=== PATIENT | female | born 1965 | race Caucasian/White ===

== ENCOUNTER 2025-02-26 15:59 | Emergency (ER) | payer OTHER, SELFPAY ==
[2025-02-26 16:16] VITALS: BP 141/84
[2025-02-26 16:37] LABS: % Basophils 0.3 % (0-2); % Eosinophils 1.1 % (0-6); % Immature Granulocytes 0.3 % (0-0.5); % Lymphocytes 49.9 % (20.5-51.1); % Monocytes 5.5 % (1.7-9.3); % Neutrophils 42.9 % (42.2-75.2); Absolute Eosinophils 0.1 10^3/uL (0-0.7); Absolute Lymphocytes 3.6 10^3/uL (1.2-3.4); Absolute Monocytes 0.4 10^3/uL (0.1-0.6); Absolute Neutrophils 3.1 10^3/uL (1.4-6.5); Hematocrit 39.8 % (37.0-47.0); Hemoglobin 14.2 g/dL (12.0-16.0); Mean Corp Hgb Conc. 35.7 g/dL (33.0-37.0); Mean Corpuscular Hgb 30.9 pg (27.0-31.0); Mean Corpuscular Volume 86.5 fL (81.0-99.0); Mean Platelet Volume 8.5 fL (7.4-10.4); Nucleated Red Blood Cells % 0 %; Platelet Count 341 10^3/uL (130-400); Red Cell Dist. Width 11.6 % (11.5-14.5); White Blood Cell Count 7.1 10^3/uL (4.8-10.8)
[2025-02-26 18:23] LABS: ALT (SGPT) 28 U/L (0-35); AST (SGOT) 24 U/L (14-36); Albumin 4.5 g/dl (3.5-5.0); Alkaline Phosphatase 95 U/L (38-126); Blood Urea Nitrogen 19 mg/dl (7-17); Calcium 9.7 mg/dl (8.4-10.2); Carbon Dioxide 29 mmol/L (22-30); Chloride 103 mmol/L (98-107); Glucose 102 mg/dl (70-99); Potassium 4.6 mmol/L (3.5-5.1); Sodium 143 mmol/L (135-145); Total Bilirubin 0.7 mg/dl (0.2-1.3); Total Protein 7.4 g/dl (6.3-8.2); eGFR > 60.00
[2025-02-26 18:53] VITALS: BP 113/80
[2025-02-26 19:00] VITALS: BP 107/77
[2025-02-26] MEDS: NSS 1000 IV (19:31)
[2025-02-26] MEDS: BENADRYL 25 MG IV (19:32)
[2025-02-26] MEDS: TORADOL 15 MG IV (19:33)
[2025-02-26] MEDS: REGLAN 10 MG IV (19:34)
--- NOTE | 2025-02-26 20:31 | ED.GENMED ---
History of Present Illness
<Micheline Dangelo PA-C - Last Filed: 02/26/25 22:45>
General
Chief Complaint: Headache
Source: patient
Exam Limitations: none
Time Seen by Provider: 02/26/25 19:14
Nursing documentation reviewed up to this point in time: agreed with
History of Present Illness
History of Present Illness:
Patient is a 59-year-old female presenting to the emergency department for evaluation of headache. Patient states she woke up yesterday morning with a severe headache on the entire right side of her head starting from behind her right eye. She
describes it as a constant throbbing with occasional sharp pain behind her eye. She has had mild nausea although no vomiting. She does report sensitivity to light and has been unable to look at her phone without exacerbating symptoms. Patient
denies any neck pain, lightheadedness/dizziness. She denies any numbness/tingling or weakness in extremities. No fever or chills. Patient denies any diplopia, ataxia, or dysarthria.
Patient has no history of migraines or similar headaches.
She is currently recovering from a URI and is taking azithromycin.
Patient denies any exogenous hormone use. No personal or family history of blood clots or clotting disorders.
Past History
<Micheline Dangelo PA-C - Last Filed: 02/26/25 22:45>
Past History
ED Past Medical History: Other
ED Past Surgical History: Other (breast augmentation)
Social History
Tobacco: Non-smoker
Alcohol: Other
Drug: None
Personal:
Living: with family
Employment: Other
Family History
Family History: Other
Review of Systems
<Micheline Dangelo PA-C - Last Filed: 02/26/25 22:45>
Review of Systems
Allergies reviewed?: Yes
All Other Systems: ROS reviewed and negative except as documented in HPI and ROS
Phy Exam
<Micheline Dangelo PA-C - Last Filed: 02/26/25 22:45>
Physical Exam
Physical Exam:
Vitals: Hypertensive, otherwise vital signs stable. Afebrile
General: Patient is mildly uncomfortable due to pain.
Skin: Warm and dry, no rashes or lesions
Head: Normocephalic, atraumatic
Eyes: Sclera nonicteric. Pupils equal round and reactive to light bilaterally. EOMs intact. No nystagmus.
Throat: Protecting airway
Neck: Normal ROM, no cervical spine tenderness, no meningismus
Cardiac: Regular rate and rhythm, no murmurs.
Pulm: Normal respiratory effort, no wheezes, rales, rhonchi heard on exam.
Abdomen: No abdominal tenderness.
Extremities: No evidence of cyanosis or edema. 5/5 strength in bilateral upper and lower extremities.
Neuro: AAOx3. CN II-XII grossly intact on exam. No facial droop or asymmetry. No focal neurologic deficits.
Psychiatric: Normal affect.
Course
<Micheline Dangelo PA-C - Last Filed: 02/26/25 22:45>
Orders/Labs/Results
Orders:
Orders
02/26/25 16:25
Complete Blood Count/With Diff Urgent
Comprehensive Metabolic Panel Urgent
Erythrocyte Sed Rate Urgent
Comment: ADD ON
02/26/25 19:25
0.9% Sodium Chloride 1000 ml [Nss] 1,000 ml IV BOLUS
Diphenhydramine [Benadryl] 25 mg IV NOW STA
Ketorolac [Toradol] 15 mg IV NOW STA
Metoclopramide [Reglan] 10 mg IV NOW STA
02/26/25 19:26
CT Head W/o Iv Contrast Urgent
Comment:
Reason For Exam: right sided headache
02/26/25 21:02
Add On- LAB Urgent
Tests Added?: ESR
CT Head & Neck Angio W/wo IV Urgent
Comment:
Reason For Exam: Right sided headache
02/26/25 22:31
Acetaminophen [Tylenol] 1,000 mg PO NOW STA
Abnormal Lab Results
02/26/25
16:25
Absolute Lymphs (auto) 3.6 H 10^3/uL
(1.2-3.4)
BUN 19 H mg/dl
(7-17)
Glucose 102 H mg/dl
(70-99)
02/26/25 16:25
02/26/25 16:25
Vital Signs
Initial and Last Documented VS:
Initial Vital Signs
Temp Pulse Resp BP Pulse Ox
98.4 F 69 18 141/84 100
02/26/25 16:16 02/26/25 16:16 02/26/25 16:16 02/26/25 16:16 02/26/25 16:16
Last Documented Vital Signs
Temp Pulse Resp BP Pulse Ox
98.4 F 78 16 111/74 94
02/26/25 16:16 02/26/25 22:37 02/26/25 22:37 02/26/25 22:37 02/26/25 22:30
<Winston Ferguson MD - Last Filed: 02/26/25 22:48>
Orders/Labs/Results
Orders:
Orders
02/26/25 16:25
Complete Blood Count/With Diff Urgent
Comprehensive Metabolic Panel Urgent
Erythrocyte Sed Rate Urgent
Comment: ADD ON
02/26/25 19:25
0.9% Sodium Chloride 1000 ml [Nss] 1,000 ml IV BOLUS
Diphenhydramine [Benadryl] 25 mg IV NOW STA
Ketorolac [Toradol] 15 mg IV NOW STA
Metoclopramide [Reglan] 10 mg IV NOW STA
02/26/25 19:26
CT Head W/o Iv Contrast Urgent
Comment:
Reason For Exam: right sided headache
02/26/25 21:02
Add On- LAB Urgent
Tests Added?: ESR
CT Head & Neck Angio W/wo IV Urgent
Comment:
Reason For Exam: Right sided headache
02/26/25 22:31
Acetaminophen [Tylenol] 1,000 mg PO NOW STA
Abnormal Lab Results
02/26/25
16:25
Absolute Lymphs (auto) 3.6 H 10^3/uL
(1.2-3.4)
BUN 19 H mg/dl
(7-17)
Glucose 102 H mg/dl
(70-99)
02/26/25 16:25
02/26/25 16:25
Vital Signs
Initial and Last Documented VS:
Initial Vital Signs
Temp Pulse Resp BP Pulse Ox
98.4 F 69 18 141/84 100
02/26/25 16:16 02/26/25 16:16 02/26/25 16:16 02/26/25 16:16 02/26/25 16:16
Last Documented Vital Signs
Temp Pulse Resp BP Pulse Ox
98.4 F 78 16 111/74 94
02/26/25 16:16 02/26/25 22:37 02/26/25 22:37 02/26/25 22:37 02/26/25 22:30
<Micheline Dangelo PA-C - Last Filed: 02/26/25 22:45>
MDM/Problems Addressed
Differential Diagnosis Includes:
Not limited to: Migraine headache, cluster headache, sinusitis, tension headache, intracranial mass/hemorrhage, temporal arteritis, etc.
MDM/Problems Addressed:
59-year-old female to right sided headache since waking yesterday associated mild photophobia. No vomiting, visual changes. No recent trauma. Currently recovering from URI. Mildly hypertensive, otherwise vital signs stable. Physical exam as
above. Patient appears mildly uncomfortable due to pain. No tenderness of neck. No temporal tenderness. No focal neurologic deficits on exam. Symptoms seem most consistent with likely migraine�however given patient has no history of similar
headaches�will obtain CT imaging. Will check basic labs. Will give migraine cocktail and reassess.
Update: Labs reviewed. No clinically significant abnormalities. CT head without acute findings. On reassessment�patient does report mild improvement in headache although states pain is still persistent. After discussion with attending�will
obtain CT a head/neck for further evaluation to rule out dissection. Will check inflammatory markers.
Update: CTA head/neck without acute findings. ESR normal. Workup in ED negative. Unknown exact etiology although low suspicion for acute process. No indication of infectious process. Patient remains nontoxic-appearing and very stable. Offered
observation hospital for pain management versus discharge home. Patient states she is feeling well enough for discharge home. Advised Tylenol, Motrin, p.o. hydration at home. She will follow-up with PCP next week. Discussed potentially MRI if
symptoms persist. Very strict return precautions discussed. Case seen with attending physician.
Chronic conditions affecting care:
N/A
Acute Exacerbation and/or Progression of Chronic Illness:
N/A
<Micheline Dangelo PA-C - Last Filed: 02/26/25 22:45>
*Radiology
Radiology exam reviewed: radiology read reviewed
*Pulse Oximetry
Patient hypoxic: no
*EKG
Interpreted by ED Provider?: NA
*Motivational Speaker Interpretation
Rate: Motivational Speaker- N/A
*Critical Care Note
Total Time (30-74mins, 75-104mins- exclusive of procedures): Not Applicable
<Micheline Dangelo PA-C - Last Filed: 02/26/25 22:45>
Patient Management
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
ED Attending Note
<Micheline Dangelo PA-C - Last Filed: 02/26/25 22:45>
-
Portions of this chart may have been created with voice recognition software.� Occasional wrong word or��sound alike� substitutions may have occurred due to the inherent limitations of voice recognition software.
<Winston Ferguson MD - Last Filed: 02/26/25 22:48>
ED Attending Note
Patient seen and examined by attending physician: Yes
I performed the substantive portion of visit, reviewed & personally made and approve the management plan that is documented in note by myself or ROMAN.: Yes
ED Attending Note:
59-year-old female complaining of right-sided headache since yesterday. Describes it as a CC around the right side of her head. No fever some mild photophobia
On exam patient is nontoxic in no distress. Neck is supple. Eyes and orbit normal. No tenderness to palpation over the orbit. No carotid bruit. Pupils are equal to reactive to light. Extraocular muscles intact. Speech is normal. Gait is
normal. She is nonfocal. No rash.
Basic labs are stable. Head CT negative. ESR negative. Elected to do CT angio to evaluate for carotid dissection. CT reviewed with neurology given the diminutive right vertebral artery. 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 Stable for
discharge to follow-up.
Discharge Plan
Departure
Patient Disposition: Home (Routine Discharge)
Date of Disposition: 02/26/25
Time of Disposition: 22:41
Patient with high blood pressure during this ER visit?: Yes
Condition: Good
Covid-19: Not Applicable
Discharge Problem:
Headache
Instructions: Headache, Adult (DC), BLOOD PRESSURE
Prescriptions:
No Action
ofloxacin 10 ML drops
10 drops LEFT EAR DAILY Qty: 7 0RF
oxycodone-acetaminophen 5 MG/325 MG tablet
1 tab PO Q6HPRN PRN (Reason: pain) Qty: 10 0RF
oxycodone-acetaminophen [Percocet] 5-325 mg tablet
1 tab PO Q4HPRN PRN (Reason: pain) Qty: 10 0RF
Referrals:
Brant Vega DO [Family Provider] - Follow up in 2-3 days
Activity Restrictions/Additional Instructions:
RETURN TO THE EMERGENCY DEPARTMENT FOR ANY WORSENING HEADACHE/NECK PAIN, HIGH FEVER, VISUAL CHANGES, PERSISTENT DIZZINESS, CHANGES IN MENTAL STATUS, WORSENING CURRENT SYMPTOMS, OR ANY OTHER CONCERNS
-As discussed that your lab work and imaging showed no acute abnormalities in the emergency department.
- Continue to take Tylenol and/or Motrin at home for headache. It is important stay well-hydrated.
- Follow-up with your primary care provider for further evaluation/management and to ensure that symptoms are improving. If headache persist that she may need MRI imaging of your brain.
Monitor your symptoms closely and return to the emergency department with any acute worsening/new symptoms or any other concerns
Interventions
Interventions:
*Risk Screen - Suicide Last Done: 02/26/25 16:16
*General Assessment Last Done: 02/26/25 16:16
*Neglect/Abuse Screening Last Done: 02/26/25 16:16
*Nursing Disposition Last Done: 02/26/25 22:46
ED- Neurological Assessment Last Done: 02/26/25 18:45
Discharge Date and Time
Print Language: PERSIAN
[2025-02-26 21:00] VITALS: BP 105/69
[2025-02-26 21:16] LABS: Erythrocyte Sed Rate 2 mm/hour (0-20)
[2025-02-26] MEDS: TYLENOL 1000 MG PO (22:36)
[2025-02-26 22:37] VITALS: BP 111/74
== END 2025-02-26 22:46 | disposition home or self-care (01) ==
LOC: EMR 15:59
PROVIDERS: Student in an Organized Health Care Education/Training Program; EMERGENCY PHYSICIAN Emergency Medicine; FAMILY PHYSICIAN Family Medicine
DX: R51.9 Headache, unspecified (principal); R03.0 Elevated blood-pressure reading, without diagnosis of hypertension
CPT/HCPCS: 99285; 96374; 96375 ×2; 96361; 70450; 70496; 70498; 80053; 85025; 85652; Q9967

== ENCOUNTER → 2025-10-27 11:17 | Outpatient (REF) | payer OTHER, SELFPAY | LOC: HWEVLT 11:17 | PROVIDERS: ATTENDING PHYSICIAN Radiology Vascular & Interventional Radiology | DX: I83.891 Varicose veins of right lower extremity with other complications (principal) | CPT/HCPCS: 93971 ==